=== PATIENT | female | born 1975 | race Caucasian/White ===

== ENCOUNTER 2016-11-08 11:44 | Emergency (ER) | payer MEDICAID ==
[~2016-11-08] VITALS: Ht 167.6 cm; Wt 102.3 kg
[~2016-11-08 11:44] MED LIST: BIRTH CONTROL; CEFTIN500 MG PO; CELEXA20 MG PO; CELEXA40 MG PO; DIABETA 2.5MG2.5 MG PO; DICLOXACILLIN500 MG PO; FORTAMET1000 MG PO; GLUCOPHAGE1000 MG PO; GLUCOPHAGE500 MG/TAB PO; IBUPROFEN; LAMICTAL 100MG100 MG PO; LEVOTHYROXINE PO; LORTAB 5/500 501 TAB PO; METFORMIN500 MG PO; MICRONASE2.5 MG PO; MOTRIN 600600 MG/TAB PO; NORCO 325 MG-51 TAB PO; NOVOLIN R100 U/ML IJ; PHENERGAN 25 TA25 MG PO; PIROXICAM PO; PRENATAL VITAMI1 TA5 PO; PRENATAL1 TA1 PO; PRILOSEC 20MG20 MG PO; PROZAC 20MG20 MG PO; SYNTHROID 0.0.025 MG; SYNTHROID0.1 MG/TAB PO; SYNTHROID0.137 MG PO; VICODIN 5/5001 UDTAB PO; VITAMIN D1000 IU PO; VITAMIN D31000 I1 PO; XANAX0.25 MG PO; ZOFRAN ODT4 MG PO
[2016-11-08 11:47] VITALS: TEMP 98.9
[2016-11-08] MEDS ORDERED: EFFEXOR-XR150 MG PO (11:51)
[2016-11-08] MEDS ORDERED: SYNTHROID0.075 MG/T PO (11:52)
[2016-11-08 12:45] LABS: ADJUSTED CALCIUM 9.1 mg/dL (8.4-10.2); ALBUMIN 4.4 gm/dL (3.5-5.0); BILIRUBIN,TOTAL 0.6 mg/dL (0.0-1.0); CALCIUM 9.4 mg/dL (8.4-10.2); CREATININE, serum 0.71 mg/dL (0.52-1.25); POTASSIUM 3.8 mmol/L (3.4-5.0); TOTAL PROTEIN 7.3 gm/dL (6.4-8.2)
[2016-11-08 12:48] LABS: BASO # 0.1 (0.0-0.2); BASO % 0.6 % (0.0-2.0); EOS # 0.2 (0.0-0.7); EOS % 2.8 % (0-4.0); GRAN # 5.8 (1.4-6.5); GRAN % 74.7 % (42.2-75.2); HEMATOCRIT 40.5 % (37.0-47.0); HEMOGLOBIN 13.5 g/dl (12.5-16.0); LYMPH # 1.2 (1.2-3.4); LYMPH % 15.4 % (20.0-51.0); MEAN CELL VOLUME 80 fl (80.0-100.0); MEAN CORPUSCULAR HEMOGLOBIN 27 pg (27.0-31.0); MEAN CORPUSCULAR HGB CONC 33 g/dl (33.0-37.0); MEAN PLATELET VOLUME 9.9 fl (7.4-10.4); MONO # 0.4 (0.1-0.6); MONO % 5.7 % (1.7-9.3); PLATELET COUNT 271 K/mm3 (130-400); RED BLOOD COUNT 5.09 M/mm3 (4.10-5.30); REDCELL DISTRIBUTION WIDTH-CV 13.2 % (11.5-14.5); WHITE BLOOD COUNT 7.8 K/mm3 (4.8-10.8)
[2016-11-08 15:00] LABS: PH 6 (5-8); URINE APPEARANCE Hazy; URINE BACTERIA None Seen /hpf; URINE BILIRUBIN Negative (NEGATIVE); URINE BLOOD 3+ (NEGATIVE); URINE COLOR Yellow; URINE GLUCOSE Negative (NEGATIVE); URINE KETONE Negative (NEGATIVE); URINE RBC 0-2 /hpf; URINE UROBILINOGEN Negative (NEGATIVE); URINE WBC 0-2 /hpf
[2016-11-08] MEDS ORDERED: NORCO 325 MG-7.1 TAB PO (15:25)
[2016-11-08] MEDS ORDERED: ZOFRAN ODT4 MG PO (15:26)
[2016-11-08 15:40] VITALS: BP 133/81; PULSE 74
== END 2016-11-08 15:44 | disposition home or self-care (01) ==
LOC: COL.ER 11:44
PROVIDERS: Emergency Medicine
DX: K76.0 Fatty (change of) liver, not elsewhere classified (principal); Z87.442 Personal history of urinary calculi; R10.31 Right lower quadrant pain; R10.11 Right upper quadrant pain
CPT/HCPCS: J1170; J2405; J7030; Q9967

== ENCOUNTER 2016-11-19 16:00 | Outpatient (RCR) | payer MEDICAID ==
[2016-11-08 16:38] VITALS: BP 116/79; PULSE 75; TEMP 98.2
[2016-11-12 11:53] VITALS: BP 119/73; PULSE 86; TEMP 98.6
[2016-11-15 16:51] VITALS: BP 123/82; PULSE 81; TEMP 98.1
[~2016-11-19 16:00] MED LIST changes: +EFFEXOR-XR150 MG PO; +NORCO 325 MG-7.1 TAB PO; +SYNTHROID0.075 MG/T PO
[2016-11-20 16:28] VITALS: BP 107/77; PULSE 77; TEMP 98.5
== END 2017-02-06 | disposition home or self-care (01) ==
LOC: EUO
DX: K76.0 Fatty (change of) liver, not elsewhere classified (principal); F17.200 Nicotine dependence, unspecified, uncomplicated
CPT/HCPCS: J2916

== ENCOUNTER → 2017-01-09 | Outpatient (CLI) | payer MEDICAID | LOC: COL.RAD 07:08 | DX: R10.13 Epigastric pain (principal); R16.0 Hepatomegaly, not elsewhere classified; K76.0 Fatty (change of) liver, not elsewhere classified; N28.1 Cyst of kidney, acquired ==

== ENCOUNTER → 2017-05-15 | Outpatient (CLI) | payer MEDICAID ==
[~2017-05-15] VITALS: Ht 168.9 cm; Wt 107.5 kg
[2017-05-15 09:09] VITALS: BP 110/72; PULSE 80
== END ==
LOC: LIGHT 05-14 13:46
DX: F33.9 Major depressive disorder, recurrent, unspecified (principal); R73.01 Impaired fasting glucose; E03.9 Hypothyroidism, unspecified; E66.9 Obesity, unspecified; Z68.37 Body mass index [BMI] 37.0-37.9, adult; Z71.3 Dietary counseling and surveillance

== ENCOUNTER 2017-06-06 19:47 | Emergency (ER) | payer MEDICAID ==
[~2017-06-06] VITALS: Ht 167.6 cm; Wt 107.8 kg
[2017-06-06 20:04] VITALS: BP 136/93; TEMP 98.4
[2017-06-06] MEDS ORDERED: TYLENOL W/COD1 UDTAB PO (20:55)
[2017-06-06] MEDS ORDERED: ULTRAM 50MG TAB50 MG PO (20:55)
[2017-06-06] MEDS ORDERED: MOTRIN 800800 MG/TAB PO (20:56)
[2017-06-06] MEDS ORDERED: NAPROSYN 2250 MG/TAB PO (20:56)
[2017-06-06 21:23] LABS: BASO # 0.1 (0.0-0.2); BASO % 0.9 % (0.0-2.0); EOS # 0.6 (0.0-0.7); EOS % 6.8 % (0-4.0); GRAN % 67.8 % (42.2-75.2); HEMATOCRIT 46.6 % (37.0-47.0); LYMPH # 1.6 (1.2-3.4); LYMPH % 18.5 % (20.0-51.0); MEAN CELL VOLUME 82 fl (80.0-100.0); MEAN CORPUSCULAR HEMOGLOBIN 28 pg (27.0-31.0); MEAN CORPUSCULAR HGB CONC 34 g/dl (33.0-37.0); MEAN PLATELET VOLUME 10.2 fl (7.4-10.4); MONO # 0.5 (0.1-0.6); MONO % 5.4 % (1.7-9.3); PLATELET COUNT 265 K/mm3 (130-400); REDCELL DISTRIBUTION WIDTH-CV 12.7 % (11.5-14.5); WHITE BLOOD COUNT 8.8 K/mm3 (4.8-10.8)
[2017-06-06 21:26] LABS: PH 6 (5-8); SQUAMOUS EPITHELIAL 0-2 /hpf; URINE APPEARANCE Clear; URINE BACTERIA Rare /hpf; URINE BILIRUBIN Negative (NEGATIVE); URINE BLOOD 1+ (NEGATIVE); URINE COLOR Yellow; URINE GLUCOSE 1+ (NEGATIVE); URINE KETONE Negative (NEGATIVE); URINE RBC 0-2 /hpf; URINE UROBILINOGEN Negative (NEGATIVE); URINE WBC 0-2 /hpf
[2017-06-06 21:33] LABS: ADJUSTED CALCIUM 9.5 mg/dL (8.4-10.2); ALBUMIN 4.5 gm/dL (3.5-5.0); BILIRUBIN,TOTAL 0.4 mg/dL (0.0-1.0); CALCIUM 9.9 mg/dL (8.4-10.2); CREATININE, serum 0.58 mg/dL (0.52-1.25); POTASSIUM 3.9 mmol/L (3.4-5.0); TOTAL PROTEIN 7.4 gm/dL (6.4-8.2)
[2017-06-06] MEDS ORDERED: PRIL40 PO (22:08)
[2017-06-06] MEDS ORDERED: BENTYL 20MG20 MG/TAB PO (22:08)
[2017-06-06 22:30] VITALS: PULSE 79
== END 2017-06-06 22:32 | disposition home or self-care (01) ==
LOC: COL.ER 19:47
PROVIDERS: Emergency Medicine
DX: R10.11 Right upper quadrant pain (principal); R19.7 Diarrhea, unspecified; G89.29 Other chronic pain; E03.9 Hypothyroidism, unspecified; F41.9 Anxiety disorder, unspecified
CPT/HCPCS: J2270; J2405; J7030

== ENCOUNTER → 2017-10-10 | Outpatient (CLI) | payer MEDICAID ==
[~2017-10-10] VITALS: Ht 167.6 cm; Wt 108.6 kg
[~2017-10-10] MED LIST changes: +BENTYL 20MG20 MG/TAB PO; +MOTRIN 800800 MG/TAB PO; +NAPROSYN 2250 MG/TAB PO; +PRIL40 PO; +TYLENOL W/COD1 UDTAB PO; +ULTRAM 50MG TAB50 MG PO
[2017-10-10 11:15] VITALS: BP 130/80; PULSE 82
== END ==
LOC: LIGHT
DX: F33.9 Major depressive disorder, recurrent, unspecified (principal); R73.01 Impaired fasting glucose; E03.9 Hypothyroidism, unspecified; E66.9 Obesity, unspecified; Z68.38 Body mass index [BMI] 38.0-38.9, adult; Z71.3 Dietary counseling and surveillance
CPT/HCPCS: G0463

== ENCOUNTER → 2017-10-21 | Outpatient (CLI) | payer MEDICAID | LOC: LIGHT 14:07 | DX: Z01.89 Encounter for other specified special examinations (principal) ==

== ENCOUNTER → 2017-11-07 | Outpatient (CLI) | payer MEDICAID ==
[~2017-11-07] VITALS: Ht 167.6 cm; Wt 110.0 kg
[~2017-11-07] MED LIST changes: +PHENTERMINE15 MG PO
[2017-11-07 11:55] VITALS: BP 120/84; PULSE 84
== END ==
LOC: LIGHT 09:46
DX: F33.9 Major depressive disorder, recurrent, unspecified (principal); R73.01 Impaired fasting glucose; E03.9 Hypothyroidism, unspecified; E66.9 Obesity, unspecified; Z68.39 Body mass index [BMI] 39.0-39.9, adult; Z71.3 Dietary counseling and surveillance
CPT/HCPCS: G0463

== ENCOUNTER → 2017-12-02 | Outpatient (CLI) | payer MEDICAID | LOC: LIGHT 14:57 | DX: Z01.818 Encounter for other preprocedural examination (principal) ==

== ENCOUNTER → 2017-12-05 | Outpatient (CLI) | payer MEDICAID ==
[~2017-12-05] VITALS: Ht 167.6 cm; Wt 108.6 kg
[~2017-12-05] MED LIST changes: +DOXYCYCLINE 10100 MG PO; +FLAGYL500 MG PO
[2017-12-05 13:48] VITALS: BP 118/84; PULSE 84
== END ==
LOC: LIGHT 13:13
DX: F33.9 Major depressive disorder, recurrent, unspecified (principal); R73.01 Impaired fasting glucose; E03.9 Hypothyroidism, unspecified; E66.9 Obesity, unspecified; Z68.38 Body mass index [BMI] 38.0-38.9, adult; Z71.3 Dietary counseling and surveillance
CPT/HCPCS: G0463

== ENCOUNTER 2017-12-07 12:36 | Emergency (ER) | payer MEDICAID ==
[~2017-12-07] VITALS: Ht 167.6 cm; Wt 108.6 kg
[~2017-12-07 12:36] MED LIST changes: -DOXYCYCLINE 10100 MG PO; -FLAGYL500 MG PO
[2017-12-07 12:38] VITALS: TEMP 98
[2017-12-07 12:59] LABS: COLLECTION METHOD CLEAN CATCH
[2017-12-07 13:08] LABS: PH 6 (5-8); SQUAMOUS EPITHELIAL 0-2 /hpf; URINE APPEARANCE Clear; URINE BACTERIA None Seen /hpf; URINE BILIRUBIN Negative (NEGATIVE); URINE BLOOD 2+ (NEGATIVE); URINE COLOR Yellow; URINE GLUCOSE 3+ (NEGATIVE); URINE KETONE Negative (NEGATIVE); URINE LEUKOCYTE ESTERASE Negative (NEGATIVE); URINE NITRATE Negative (NEGATIVE); URINE PROTEIN(semi-quant) Negative (NEGATIVE); URINE RBC None Seen /hpf; URINE UROBILINOGEN Negative (NEGATIVE)
[2017-12-07 13:31] LABS: BASO # 0.1 (0.0-0.2); EOS # 0.4 (0.0-0.7); EOS % 4.8 % (0-4.0); GRAN # 4.8 (1.4-6.5); GRAN % 66.1 % (42.2-75.2); HEMATOCRIT 42.1 % (37.0-47.0); HEMOGLOBIN 14.5 g/dl (12.5-16.0); LYMPH # 1.6 (1.2-3.4); LYMPH % 21.7 % (20.0-51.0); MEAN CELL VOLUME 82 fl (80.0-100.0); MEAN CORPUSCULAR HEMOGLOBIN 28 pg (27.0-31.0); MEAN CORPUSCULAR HGB CONC 34 g/dl (33.0-37.0); MEAN PLATELET VOLUME 10.1 fl (7.4-10.4); MONO # 0.4 (0.1-0.6); MONO % 5.7 % (1.7-9.3); PLATELET COUNT 234 K/mm3 (130-400); RED BLOOD COUNT 5.14 M/mm3 (4.10-5.30); REDCELL DISTRIBUTION WIDTH-CV 12.7 % (11.5-14.5)
[2017-12-07 13:37] LABS: ALBUMIN 4.2 gm/dL (3.5-5.0); BILIRUBIN,TOTAL 0.3 mg/dL (0.0-1.0); CALCIUM 8.7 mg/dL (8.4-10.2); CREATININE, serum 0.57 mg/dL (0.52-1.25); POTASSIUM 3.8 mmol/L (3.4-5.0); TOTAL PROTEIN 6.8 gm/dL (6.4-8.2)
[2017-12-07] MEDS ORDERED: FLAGYL500 MG PO (15:23)
[2017-12-07] MEDS ORDERED: DOXYCYCLINE 10100 MG PO (15:23)
[2017-12-07] MEDS ORDERED: NORCO 325 MG-51 TAB PO (15:47)
[2017-12-07 15:49] VITALS: BP 132/86; PULSE 88
== END 2017-12-07 15:49 | disposition home or self-care (01) ==
LOC: COL.ER 12:36
PROVIDERS: Emergency Medicine
DX: R10.30 Lower abdominal pain, unspecified (principal); R10.2 Pelvic and perineal pain; E03.9 Hypothyroidism, unspecified; F17.210 Nicotine dependence, cigarettes, uncomplicated; Z87.442 Personal history of urinary calculi; Z98.890 Other specified postprocedural states
CPT/HCPCS: J0696

== ENCOUNTER → 2018-01-02 | Outpatient (CLI) | payer MEDICAID ==
[~2018-01-02] VITALS: Ht 167.6 cm; Wt 108.9 kg
[~2018-01-02] MED LIST changes: +ADIPEX-P37.5 MG PO; +DOXYCYCLINE 10100 MG PO; +FLAGYL500 MG PO; -PHENTERMINE15 MG PO; -SYNTHROID0.075 MG/T PO; +SYNTHROID0.175 MG PO
[2018-01-02 14:02] VITALS: BP 150/100; PULSE 72
== END ==
LOC: LIGHT 13:04
DX: F33.9 Major depressive disorder, recurrent, unspecified (principal); R73.01 Impaired fasting glucose; E03.9 Hypothyroidism, unspecified; E66.9 Obesity, unspecified; Z68.38 Body mass index [BMI] 38.0-38.9, adult; Z71.3 Dietary counseling and surveillance
CPT/HCPCS: G0463

== ENCOUNTER → 2018-01-14 | Outpatient (CLI) | payer MEDICAID | LOC: COL.PUL 12:54 | DX: R06.02 Shortness of breath (principal) ==

== ENCOUNTER 2018-02-06 21:15 | Emergency (ER) | payer MEDICAID ==
[~2018-02-06] VITALS: Ht 167.6 cm; Wt 106.8 kg
[2018-02-06 21:17] VITALS: TEMP 97.6
[2018-02-06 21:51] LABS: BASO # 0.1 (0.0-0.2); BASO % 0.7 % (0.0-2.0); EOS # 0.5 (0.0-0.7); EOS % 3.9 % (0-4.0); GRAN # 8.4 (1.4-6.5); GRAN % 70.1 % (42.2-75.2); HEMATOCRIT 42.8 % (37.0-47.0); LYMPH # 2.3 (1.2-3.4); LYMPH % 19.1 % (20.0-51.0); MEAN CELL VOLUME 81 fl (80.0-100.0); MEAN CORPUSCULAR HEMOGLOBIN 29 pg (27.0-31.0); MEAN CORPUSCULAR HGB CONC 35 g/dl (33.0-37.0); MEAN PLATELET VOLUME 9.9 fl (7.4-10.4); MONO # 0.6 (0.1-0.6); MONO % 5.2 % (1.7-9.3); PLATELET COUNT 230 K/mm3 (130-400); RED BLOOD COUNT 5.27 M/mm3 (4.10-5.30); REDCELL DISTRIBUTION WIDTH-CV 12.4 % (11.5-14.5)
[2018-02-06 21:59] LABS: PROTHROMBIN TIME 10.9 SECONDS (9.7-12.8)
[2018-02-06 22:00] LABS: ALANINE AMINOTRANSFERASE 46 U/L (9-52); ALBUMIN 4.1 gm/dL (3.5-5.0); ALKALINE PHOSPHATASE 98 U/L (50-136); ANION GAP 15 mmol/L (7-16); AST,SGOT 28 U/L (15-37); BILIRUBIN,TOTAL 0.4 mg/dL (0.0-1.0); BLOOD UREA NITROGEN 10 mg/dL (7-17); CALCIUM 9.3 mg/dL (8.4-10.2); CARBON DIOXIDE 21 mmol/L (22-30); CHLORIDE 103 mmol/L (98-107); CREATININE, serum 0.58 mg/dL (0.52-1.25); GLUCOSE 165 mg/dL (74-106); LIPASE 55 U/L (23-300); POTASSIUM 3.1 mmol/L (3.4-5.0); SODIUM 140 mmol/L (137-145); TOTAL PROTEIN 7.2 gm/dL (6.4-8.2)
[2018-02-06 22:15] LABS: TROPONIN-I < 0.012 ng/mL (0.000-0.034)
[2018-02-07 00:27] VITALS: BP 107/68; PULSE 72
== END 2018-02-07 00:48 | disposition home or self-care (01) ==
LOC: COL.ER 21:15
PROVIDERS: Emergency Medicine
DX: R42 Dizziness and giddiness (principal); E11.9 Type 2 diabetes mellitus without complications; E03.9 Hypothyroidism, unspecified
CPT/HCPCS: J2060; J2550; J7030

== ENCOUNTER → 2018-02-06 | Outpatient (CLI) | payer MEDICAID ==
[~2018-02-06] VITALS: Ht 167.6 cm; Wt 106.6 kg
[2018-02-06 13:10] VITALS: BP 114/70; PULSE 72
== END ==
LOC: LIGHT 13:02
DX: F33.9 Major depressive disorder, recurrent, unspecified (principal); R73.01 Impaired fasting glucose; E03.9 Hypothyroidism, unspecified; E66.9 Obesity, unspecified; Z68.37 Body mass index [BMI] 37.0-37.9, adult; Z71.3 Dietary counseling and surveillance
CPT/HCPCS: G0463

== ENCOUNTER → 2018-02-17 | Outpatient (CLI) | payer MEDICAID, OTHER ==
[~2018-02-17] VITALS: Ht 167.6 cm; Wt 106.4 kg
[2018-02-17 15:35] VITALS: BP 112/60; PULSE 64
== END ==
LOC: LIGHT 15:12
DX: E66.01 Morbid (severe) obesity due to excess calories (principal); Z68.37 Body mass index [BMI] 37.0-37.9, adult; Z71.3 Dietary counseling and surveillance
CPT/HCPCS: G0463

== ENCOUNTER 2018-03-03 16:48 | Inpatient (IN) | payer MEDICAID ==
[~2018-03-03] VITALS: Ht 167.6 cm; Wt 105.9 kg
[~2018-03-03 16:48] MED LIST changes: -SYNTHROID0.175 MG PO
[2018-03-19] VITALS (12 sets, daily range): BP systolic 132–149; BP diastolic 74–95; PULSE 67–108; TEMP 98.2–98.4
[2018-03-20 04:40] VITALS: BP 132/82; PULSE 89; TEMP 98.5
[2018-03-20 11:22] VITALS: BP 146/89; PULSE 87; TEMP 97.9
[2018-03-20 15:14] VITALS: BP 138/86; PULSE 83; TEMP 98.6
== END 2018-03-20 18:51 | disposition home or self-care (01) | DRG 621 ==
LOC: SURG 03-19 09:27 → INPTSU 03-19 09:27 → SURG 03-19 11:30
PROVIDERS: Surgery
PROC: 0DB64Z3 Excision of Stomach, Percutaneous Endoscopic Approach, Vertical (ICD-10-PCS; principal; 2018-03-19 11:30)
DX: E66.01 Morbid (severe) obesity due to excess calories (principal); Z68.37 Body mass index [BMI] 37.0-37.9, adult; E28.2 Polycystic ovarian syndrome; E03.9 Hypothyroidism, unspecified; F41.8 Other specified anxiety disorders
CPT/HCPCS: J0690; J1100; J1170; J1885; J2405; J2550; J2704; J3010; J7030

== ENCOUNTER → 2018-03-10 | Outpatient (CLI) | payer MEDICAID, OTHER ==
[~2018-03-10] MED LIST changes: +SYNTHROID0.175 MG PO
== END ==
LOC: LIGHT 11:01
DX: E66.9 Obesity, unspecified (principal)

== ENCOUNTER → 2018-03-31 | Outpatient (CLI) | payer MEDICAID, OTHER ==
[~2018-03-31] VITALS: Ht 167.6 cm; Wt 98.7 kg
[~2018-03-31] MED LIST changes: -SYNTHROID0.175 MG PO
[2018-03-31 15:37] VITALS: BP 102/72; PULSE 70
== END ==
LOC: LIGHT
DX: R73.01 Impaired fasting glucose (principal); E66.9 Obesity, unspecified; Z68.35 Body mass index [BMI] 35.0-35.9, adult; Z71.3 Dietary counseling and surveillance

== ENCOUNTER → 2018-04-28 | Outpatient (CLI) | payer MEDICAID, OTHER ==
[~2018-04-28] VITALS: Ht 167.6 cm; Wt 93.4 kg
[~2018-04-28] MED LIST changes: +CALCIUM CITRAT950 MG PO; +FLINTSTONES COM1 CT1 PO; +HARD NAILS 2.51 CAP PO; +MASON NATURAL2000 IU PO
[2018-04-28 14:38] VITALS: BP 106/76; PULSE 88
== END ==
LOC: LIGHT 14:11
DX: R73.01 Impaired fasting glucose (principal); E03.9 Hypothyroidism, unspecified; E66.9 Obesity, unspecified; Z68.33 Body mass index [BMI] 33.0-33.9, adult; Z98.84 Bariatric surgery status; Z71.3 Dietary counseling and surveillance

== ENCOUNTER 2018-10-09 09:50 | Emergency (ER) | payer MEDICAID ==
[~2018-10-09] VITALS: Ht 167.6 cm; Wt 83.2 kg
[2018-10-09 09:55] VITALS: BP 119/80; TEMP 98
[2018-10-09] MEDS ORDERED: SYNTHROID 0.10.15 MG PO (10:13)
[2018-10-09] MEDS ORDERED: AMOXICILLIN 50500 MG PO (10:16)
[2018-10-09] MEDS ORDERED: NORCO 325 MG-51 TAB PO (10:17)
[2018-10-09 10:32] VITALS: PULSE 80
== END 2018-10-09 10:32 | disposition home or self-care (01) ==
LOC: COL.ER 09:50
DX: K03.81 Cracked tooth (principal); K08.89 Other specified disorders of teeth and supporting structures; Z88.5 Allergy status to narcotic agent

== ENCOUNTER → 2019-01-05 | Outpatient (CLI) | payer MEDICAID, OTHER ==
[~2019-01-05] VITALS: Ht 167.6 cm; Wt 82.6 kg
[~2019-01-05] MED LIST changes: +AMOXICILLIN 50500 MG PO; +FIBER GUMMIES2.5 GM PO; -MASON NATURAL2000 IU PO; +SYNTHROID 0.10.15 MG PO; +VITAMIN D31000 IU PO
[2019-01-05 13:18] VITALS: BP 118/76; PULSE 74
== END ==
LOC: LIGHT
DX: E66.01 Morbid (severe) obesity due to excess calories (principal); Z68.29 Body mass index [BMI] 29.0-29.9, adult; Z71.3 Dietary counseling and surveillance
CPT/HCPCS: G0463

== ENCOUNTER → 2019-04-13 | Outpatient (CLI) | payer MEDICAID ==
[~2019-04-13] VITALS: Ht 167.6 cm; Wt 80.3 kg
[2019-04-13 13:50] VITALS: BP 100/70; PULSE 78
== END ==
LOC: LIGHT 13:19
DX: R73.01 Impaired fasting glucose (principal); E03.9 Hypothyroidism, unspecified; Z98.84 Bariatric surgery status; E66.3 Overweight; Z68.28 Body mass index [BMI] 28.0-28.9, adult; Z71.3 Dietary counseling and surveillance
CPT/HCPCS: G0463

== ENCOUNTER → 2019-04-16 | Outpatient (CLI) | payer MEDICAID | LOC: COL.RAD 07:10 | DX: R11.2 Nausea with vomiting, unspecified (principal); R10.9 Unspecified abdominal pain; Z98.84 Bariatric surgery status ==

== ENCOUNTER → 2019-04-27 | Outpatient (CLI) | payer MEDICAID ==
[~2019-04-27] VITALS: Ht 167.6 cm; Wt 80.3 kg
[2019-04-27 12:47] VITALS: BP 104/60; PULSE 84
--- NOTE | 2019-04-27 13:30 | NUR ---
Client left the clinic stating, "I have to go get my mom". Client had been seen by the nurse but had not seen the physician. No fee for today's visit. Called and left a message that her GB ultrasound was normal and if her pain continues we could obtain a hepatobiliary scan per Dr. Antony. Encouraged client to journal to determine if a specific food type or volume was causing her discomfort. To call program nurse for any issues.
== END ==
LOC: LIGHT 07:21
DX: Z98.84 Bariatric surgery status (principal); R73.01 Impaired fasting glucose; E03.9 Hypothyroidism, unspecified; E66.9 Obesity, unspecified; Z68.28 Body mass index [BMI] 28.0-28.9, adult; Z71.3 Dietary counseling and surveillance

== ENCOUNTER 2019-07-28 17:22 | Emergency (ER) | payer MEDICAID ==
[~2019-07-28] VITALS: Ht 167.6 cm; Wt 79.5 kg
[2019-07-28 17:25] VITALS: TEMP 99
[2019-07-28 17:37] LABS: COLLECTION METHOD CLEAN CATCH
[2019-07-28 17:51] LABS: PH 6 (5-8); SQUAMOUS EPITHELIAL 0-2 /hpf; URINE APPEARANCE Clear; URINE BACTERIA None Seen /hpf; URINE BILIRUBIN Negative (NEGATIVE); URINE BLOOD Negative (NEGATIVE); URINE COLOR Yellow; URINE GLUCOSE Negative (NEGATIVE); URINE KETONE Negative (NEGATIVE); URINE LEUKOCYTE ESTERASE Negative (NEGATIVE); URINE NITRATE Negative (NEGATIVE); URINE PROTEIN(semi-quant) Negative (NEGATIVE); URINE RBC None Seen /hpf; URINE UROBILINOGEN >=4.0 mg/dL (NEGATIVE)
[2019-07-28 17:53] LABS: BASO # 0.1 (0.0-0.2); EOS # 0.1 (0.0-0.7); EOS % 1.2 % (0-4.0); GRAN # 4.5 (1.4-6.5); HEMATOCRIT 41.8 % (37.0-47.0); HEMOGLOBIN 14.4 g/dl (12.5-16.0); LYMPH % 15.7 % (20.0-51.0); MEAN CELL VOLUME 83 fl (80.0-100.0); MEAN CORPUSCULAR HEMOGLOBIN 29 pg (27.0-31.0); MEAN CORPUSCULAR HGB CONC 34 g/dl (33.0-37.0); MEAN PLATELET VOLUME 9.7 fl (7.4-10.4); MONO # 0.4 (0.1-0.6); MONO % 6.8 % (1.7-9.3); PLATELET COUNT 191 K/mm3 (130-400); RED BLOOD COUNT 5.05 M/mm3 (4.10-5.30); REDCELL DISTRIBUTION WIDTH-CV 12.6 % (11.5-14.5)
[2019-07-28 18:10] LABS: ALANINE AMINOTRANSFERASE 15 U/L (9-52); ALBUMIN 4.5 gm/dL (3.5-5.0); ALKALINE PHOSPHATASE 48 U/L (50-136); ANION GAP 11 mmol/L (7-16); AST,SGOT 19 U/L (15-37); BILIRUBIN,TOTAL 0.4 mg/dL (0.0-1.0); BLOOD UREA NITROGEN 7 mg/dL (7-17); C-REACTIVE PROTEIN 6.2 mg/dL (0.0-0.9); CALCIUM 9.1 mg/dL (8.4-10.2); CARBON DIOXIDE 24 mmol/L (22-30); CHLORIDE 101 mmol/L (98-107); CREATININE, serum 0.58 (0.52-1.25); GLUCOSE 184 mg/dL (74-106); LIPASE 42 U/L (23-300); POTASSIUM 3.6 mmol/L (3.4-5.0); SODIUM 136 mmol/L (137-145); TOTAL PROTEIN 7.5 gm/dL (6.4-8.2)
[2019-07-28 18:29] LABS: TROPONIN-I < 0.012 ng/mL (0.000-0.035)
[2019-07-28] MEDS ORDERED: DOXYCYCLINE 10100 MG PO (20:03)
[2019-07-28] MEDS ORDERED: ZOFRAN ODT4 MG PO (20:03)
[2019-07-28 20:05] VITALS: BP 121/77; PULSE 84
== END 2019-07-28 20:15 | disposition home or self-care (01) ==
LOC: COL.ER 17:22
PROVIDERS: Nurse Practitioner
DX: J18.1 Lobar pneumonia, unspecified organism (principal); F32.9 Major depressive disorder, single episode, unspecified; E03.9 Hypothyroidism, unspecified; Z98.51 Tubal ligation status; Z88.5 Allergy status to narcotic agent; Z87.891 Personal history of nicotine dependence
CPT/HCPCS: A4216; J0696; J1170; J1885; J2405; J2550; J7030; Q9967

== ENCOUNTER 2019-10-08 17:47 | Emergency (ER) | payer MEDICAID ==
[~2019-10-08] VITALS: Ht 167.6 cm; Wt 79.5 kg
[2019-10-08 18:06] VITALS: TEMP 98.1
[2019-10-08 19:07] LABS: BASO # 0.1 (0.0-0.2); BASO % 0.9 % (0.0-2.0); EOS # 0.2 (0.0-0.7); EOS % 2.4 % (0-4.0); GRAN # 6.7 (1.4-6.5); GRAN % 71.7 % (42.2-75.2); HEMATOCRIT 43.8 % (37.0-47.0); HEMOGLOBIN 14.8 g/dl (12.5-16.0); LYMPH # 1.8 (1.2-3.4); LYMPH % 19.3 % (20.0-51.0); MEAN CELL VOLUME 86 fl (80.0-100.0); MEAN CORPUSCULAR HEMOGLOBIN 29 pg (27.0-31.0); MEAN CORPUSCULAR HGB CONC 34 g/dl (33.0-37.0); MEAN PLATELET VOLUME 10.2 fl (7.4-10.4); MONO # 0.5 (0.1-0.6); MONO % 5.2 % (1.7-9.3); PLATELET COUNT 245 K/mm3 (130-400); RED BLOOD COUNT 5.12 M/mm3 (4.10-5.30); REDCELL DISTRIBUTION WIDTH-CV 12.3 % (11.5-14.5)
[2019-10-08 19:31] LABS: ALANINE AMINOTRANSFERASE 13 U/L (9-52); ALBUMIN 4.7 gm/dL (3.5-5.0); ALKALINE PHOSPHATASE 54 U/L (50-136); ANION GAP 11 mmol/L (7-16); AST,SGOT 20 U/L (15-37); BILIRUBIN,TOTAL 0.4 mg/dL (0.0-1.0); BLOOD UREA NITROGEN 13 mg/dL (7-17); CALCIUM 9.2 mg/dL (8.4-10.2); CARBON DIOXIDE 26 mmol/L (22-30); CHLORIDE 104 mmol/L (98-107); GLUCOSE 118 mg/dL (74-106); POTASSIUM 3.9 mmol/L (3.4-5.0); SODIUM 141 mmol/L (137-145); TOTAL PROTEIN 7.4 gm/dL (6.4-8.2)
[2019-10-08 19:40] LABS: C-REACTIVE PROTEIN < 0.5 mg/dL (0.0-0.9); TROPONIN-I < 0.012 ng/mL (0.000-0.035)
[2019-10-08 20:01] VITALS: BP 117/79
[2019-10-08] MEDS ORDERED: ZOFRAN 4MG T4 MG/TAB PO (20:06)
[2019-10-08] MEDS ORDERED: ANTIVERT 25MG25 MG PO (20:06)
[2019-10-08 20:09] VITALS: PULSE 68
== END 2019-10-08 20:20 | disposition home or self-care (01) ==
LOC: COL.ER 17:47
PROVIDERS: Emergency Medicine
DX: R42 Dizziness and giddiness (principal); R53.81 Other malaise; F32.9 Major depressive disorder, single episode, unspecified; E03.9 Hypothyroidism, unspecified
CPT/HCPCS: J2405; J7030

== ENCOUNTER → 2019-10-29 | Outpatient (CLI) | payer MEDICAID ==
[~2019-10-29] VITALS: Ht 167.6 cm; Wt 81.2 kg
[~2019-10-29] MED LIST changes: +ANTIVERT 25MG25 MG PO; +ZOFRAN 4MG T4 MG/TAB PO
[2019-10-29 13:30] VITALS: BP 102/70; PULSE 84
== END ==
LOC: LIGHT 10-22 11:30
DX: Z68.28 Body mass index [BMI] 28.0-28.9, adult (principal); Z98.84 Bariatric surgery status; R73.01 Impaired fasting glucose
CPT/HCPCS: G0463

== ENCOUNTER → 2020-02-26 | Outpatient (CLI) | payer MEDICAID | LOC: COL.RAD 12:53 | DX: N80.9 Endometriosis, unspecified (principal); Q51.3 Bicornate uterus; N83.9 Noninflammatory disorder of ovary, fallopian tube and broad ligament, unspecified | CPT/HCPCS: A9585 ==

== ENCOUNTER 2020-08-07 16:44 | Emergency (ER) | payer MEDICAID ==
[~2020-08-07] VITALS: Ht 167.6 cm; Wt 81.8 kg
[2020-08-07 16:50] VITALS: BP 149/85; TEMP 97
[2020-08-07 18:32] VITALS: PULSE 66
== END 2020-08-07 18:32 | disposition home or self-care (01) ==
LOC: COL.ER 16:44
DX: R51.9 Headache, unspecified (principal); E03.9 Hypothyroidism, unspecified; F32.9 Major depressive disorder, single episode, unspecified; Z90.710 Acquired absence of both cervix and uterus; Z98.84 Bariatric surgery status; Z88.5 Allergy status to narcotic agent; Z79.890 Hormone replacement therapy
CPT/HCPCS: J1885; J2405

== ENCOUNTER 2020-10-02 17:26 | Emergency (ER) | payer MEDICAID ==
[~2020-10-02] VITALS: Ht 167.6 cm; Wt 81.8 kg
[2020-10-02 17:46] VITALS: BP 121/73; PULSE 85; TEMP 97.9
[2020-10-02 19:00] LABS: COLLECTION METHOD CLEAN CATCH
[2020-10-02 19:04] LABS: BASO # 0.1 (0.0-0.2); BASO % 0.8 % (0.0-2.0); EOS # 0.3 (0.0-0.7); EOS % 2.6 % (0-4.0); GRAN % 70.2 % (42.2-75.2); HEMATOCRIT 44.5 % (37.0-47.0); HEMOGLOBIN 14.5 g/dl (12.5-16.0); LYMPH # 1.9 (1.2-3.4); LYMPH % 18.9 % (20.0-51.0); MEAN CELL VOLUME 86 fl (80.0-100.0); MEAN CORPUSCULAR HEMOGLOBIN 28 pg (27.0-31.0); MEAN CORPUSCULAR HGB CONC 33 g/dl (33.0-37.0); MEAN PLATELET VOLUME 9.9 fl (7.4-10.4); MONO # 0.7 (0.1-0.6); MONO % 6.9 % (1.7-9.3); PLATELET COUNT 275 K/mm3 (130-400); REDCELL DISTRIBUTION WIDTH-CV 12.8 % (11.5-14.5)
[2020-10-02 19:07] LABS: PH 6 (5-8); SQUAMOUS EPITHELIAL 0-2 /hpf; URINE APPEARANCE Clear; URINE BACTERIA None Seen /hpf; URINE BILIRUBIN Negative (NEGATIVE); URINE BLOOD Negative (NEGATIVE); URINE COLOR Yellow; URINE GLUCOSE 3+ (NEGATIVE); URINE KETONE Trace (NEGATIVE); URINE LEUKOCYTE ESTERASE Negative (NEGATIVE); URINE NITRATE Negative (NEGATIVE); URINE PROTEIN(semi-quant) Negative (NEGATIVE); URINE RBC 0-2 /hpf
[2020-10-02 19:13] LABS: ALANINE AMINOTRANSFERASE 18 U/L (4-34); ALBUMIN 4.6 gm/dL (3.5-5.0); ALKALINE PHOSPHATASE 55 U/L (50-136); ANION GAP 9 mmol/L (7-16); AST,SGOT 24 U/L (15-37); BILIRUBIN,TOTAL 0.4 mg/dL (0.0-1.0); BLOOD UREA NITROGEN 10 mg/dL (7-17); C-REACTIVE PROTEIN < 0.5 mg/dL (0.0-0.9); CALCIUM 9.3 mg/dL (8.4-10.2); CARBON DIOXIDE 28 mmol/L (22-30); CHLORIDE 100 mmol/L (98-107); CREATININE, serum 0.66 (0.52-1.25); GLUCOSE 135 mg/dL (74-106); LIPASE 57 U/L (23-300); POTASSIUM 4.1 mmol/L (3.4-5.0); SODIUM 137 mmol/L (137-145); TOTAL PROTEIN 7.4 gm/dL (6.4-8.2)
== END 2020-10-02 21:42 | disposition home or self-care (01) ==
LOC: COL.ER 17:26
PROVIDERS: Physician Assistant
DX: R10.30 Lower abdominal pain, unspecified (principal); R11.2 Nausea with vomiting, unspecified; E03.9 Hypothyroidism, unspecified; Z98.84 Bariatric surgery status; Z88.6 Allergy status to analgesic agent; Z79.890 Hormone replacement therapy
CPT/HCPCS: J1885; J2405; J7030; Q9967

== ENCOUNTER 2021-02-17 13:34 | Emergency (ER) | payer MEDICAID ==
[~2021-02-17] VITALS: Ht 167.6 cm; Wt 81.8 kg
[2021-02-17 15:15] LABS: BASO # 0.1 (0.0-0.2); BASO % 0.8 % (0.0-2.0); EOS # 0.2 (0.0-0.7); EOS % 2.8 % (0-4.0); GRAN % 66.1 % (42.2-75.2); HEMATOCRIT 41.7 % (37.0-47.0); LYMPH # 1.8 (1.2-3.4); LYMPH % 23.1 % (20.0-51.0); MEAN CELL VOLUME 83 fl (80.0-100.0); MEAN CORPUSCULAR HEMOGLOBIN 28 pg (27.0-31.0); MEAN CORPUSCULAR HGB CONC 34 g/dl (33.0-37.0); MONO # 0.5 (0.1-0.6); MONO % 6.7 % (1.7-9.3); PLATELET COUNT 257 K/mm3 (130-400); RED BLOOD COUNT 5.03 M/mm3 (4.10-5.30); REDCELL DISTRIBUTION WIDTH-CV 12.8 % (11.5-14.5)
[2021-02-17] MEDS ORDERED: CHERATUSSIN AC120 ML PO (15:47)
[2021-02-17 16:08] VITALS: BP 124/64; PULSE 75; TEMP 98.9
== END 2021-02-17 16:09 | disposition home or self-care (01) ==
LOC: COL.ER 13:34
PROVIDERS: Family Medicine
DX: B34.9 Viral infection, unspecified (principal); J39.9 Disease of upper respiratory tract, unspecified; F17.290 Nicotine dependence, other tobacco product, uncomplicated; Z20.822 Contact with and (suspected) exposure to COVID-19

== ENCOUNTER 2021-09-21 17:33 | Emergency (ER) | payer MEDICAID ==
[~2021-09-21] VITALS: Ht 167.6 cm; Wt 84.1 kg
[~2021-09-21 17:33] MED LIST changes: +CHERATUSSIN AC120 ML PO
[2021-09-21 17:56] VITALS: TEMP 98.1
[2021-09-21 19:01] LABS: COLLECTION METHOD CLEAN CATCH
[2021-09-21 19:10] LABS: PH 5 (5-8); SQUAMOUS EPITHELIAL 0-2 /hpf (0-10); URINE APPEARANCE Clear (CLEAR/HAZY); URINE BACTERIA Rare /hpf (NONE SEEN); URINE BILIRUBIN Negative (NEGATIVE); URINE BLOOD Negative (NEGATIVE); URINE COLOR Yellow (YELLOW); URINE GLUCOSE Negative (NEGATIVE); URINE KETONE Trace (NEGATIVE); URINE LEUKOCYTE ESTERASE Negative (NEGATIVE); URINE NITRATE Negative (NEGATIVE); URINE PROTEIN(semi-quant) Negative (NEGATIVE); URINE RBC 0-2 /hpf (0-2); URINE UROBILINOGEN Negative (NEGATIVE)
[2021-09-21 19:56] LABS: BASO # 0.1 K/mm3 (0.0-0.2); BASO % 0.7 % (0.0-2.0); EOS # 0.4 K/mm3 (0.0-0.7); GRAN % 68.3 % (42.2-75.2); HEMATOCRIT 44.2 % (37.0-47.0); HEMOGLOBIN 14.6 g/dl (12.5-16.0); LYMPH # 2.6 K/mm3 (1.2-3.4); LYMPH % 22.1 % (20.0-51.0); MEAN CELL VOLUME 85 fl (80.0-100.0); MEAN CORPUSCULAR HEMOGLOBIN 28 pg (27-31); MEAN CORPUSCULAR HGB CONC 33 g/dl (33.0-37.0); MEAN PLATELET VOLUME 9.8 fl (7.4-10.4); MONO # 0.7 K/mm3 (0.1-0.6); MONO % 5.6 % (1.7-9.3); PLATELET COUNT 268 K/mm3 (130-400); RED BLOOD COUNT 5.19 M/mm3 (4.10-5.30); REDCELL DISTRIBUTION WIDTH-CV 12.7 % (11.5-14.5)
[2021-09-21 20:15] LABS: ALBUMIN 4.4 gm/dL (3.5-5.0); BILIRUBIN,TOTAL 0.3 mg/dL (0.2-1.2); C-REACTIVE PROTEIN 0.17 mg/dL (0.00-0.50); CALCIUM 8.9 mg/dL (8.4-10.2); CREATININE, serum 0.74 mg/dL (0.57-1.11); POTASSIUM 3.9 mmol/L (3.5-4.5); TOTAL PROTEIN 7.3 gm/dL (6.2-8.1)
[2021-09-21] MEDS ORDERED: BENTYL 20MG20 MG/TAB PO (22:08)
[2021-09-21] MEDS ORDERED: ZOFRAN ODT4 MG PO (22:08)
[2021-09-21 22:35] VITALS: BP 129/79; PULSE 68
== END 2021-09-21 22:35 | disposition home or self-care (01) ==
LOC: COL.ER 17:33
PROVIDERS: Nurse Practitioner
DX: R10.31 Right lower quadrant pain (principal); R10.32 Left lower quadrant pain; R11.0 Nausea; E03.9 Hypothyroidism, unspecified; F32.A Depression, unspecified; K58.9 Irritable bowel syndrome, unspecified; Z98.84 Bariatric surgery status; Z88.5 Allergy status to narcotic agent; Z79.890 Hormone replacement therapy; Z79.899 Other long term (current) drug therapy
CPT/HCPCS: J1170; J2405; J7030; Q9967

== ENCOUNTER 2021-10-11 08:25 | Day surgery (SDC) | payer MEDICAID ==
[~2021-10-11] VITALS: Ht 167.6 cm; Wt 83.7 kg
--- NOTE | 2021-10-11 08:40 | NUR ---
Patient and her daughter arrived to the endo suite. The patient states it is AOK for her daughter to be present for questions and history review. The patient is alert and oriented x3. Medications and HX reviewed. Patient states having a prior hysterectomy. Vitals obtained. Physical assessment completed. Patient states having diet controlled type II diabetes. She states she does not take her blood sugar at home, but does experience low blood sugar. RN to obtain blood sugar prior to procedure. Patient changed into a clean gown. Has non-slip socks on and the call chung is at bedside. Daughter requsted a Sprite to drink.
[2021-10-11] MEDS ORDERED: LEVOXYL0.112 MG PO (08:48)
[2021-10-11] MEDS ORDERED: EFFEXOR-XR150 MG PO (08:51)
[2021-10-11] MEDS ORDERED: EFFEXOR 3737.5 MG/TA PO (08:51)
[2021-10-11] MEDS ORDERED: BUSPAR10 MG PO (08:52)
[2021-10-11 09:01] VITALS: BP 113/75; PULSE 78; TEMP 98
--- NOTE | 2021-10-11 09:15 | NUR ---
Blood sugar obtained: 92. IV started in R hand on first attempt. IVF is slowly infusing and is positional. MICHAEL Song notified. IVF scanned.
--- NOTE | 2021-10-11 09:30 | NUR ---
Daughter was provided a warm blueberry muffin and Sprite to drink. Iglesia chung is in her lap.
[2021-10-11 10:00] VITALS: BP 115/74; PULSE 70; TEMP 97.8
--- NOTE | 2021-10-11 10:00 | NUR ---
Patient arrived on cart from Endo suite. Patient is alert but drowsy. She ambulated from the cart to the chair without difficulty, using a steady gait. Vitals obtained. Verbal report obtained. Patient requested ice water and a warm muffin to eat. Daughter is present. Call chung is at bedside. Warm blanket provided.
[2021-10-11 10:15] VITALS: BP 114/80; PULSE 68
--- NOTE | 2021-10-11 10:15 | NUR ---
Patient is tolerating her ice water and muffin well. Denies neusea. No vomiting. Vitals obtained. The DR was then in to see the patient. Call chung is within reach.
[2021-10-11 10:30] VITALS: BP 119/83; PULSE 70
--- NOTE | 2021-10-11 10:30 | NUR ---
Vitals obtained. IV was discontinued at this time due to impending dishcarge. Catheter tip intact. Pressure dressing applied. No swelling or redness noted. Discharge instructions were reviewed, along with patient education. The patient verbalized understanding of material and signed the related paperwork. The patient denied needing assistance changing into her personal clothes and stated she will use the call chung when her ride arrives at the patient entrence. Call chung is within reach on the bedside table.
--- NOTE | 2021-10-11 10:50 | NUR ---
The patient was escorted out to the patient entrence by MICHAEL Montelongo via wheelchair. The patient has her personal belonings and her daughter has the discharge packet in hand. The patient was transferred into the care of her , who is present to drive. The patient got into the front seat and put on her seatbelt.
== END 2021-10-11 10:50 | disposition home or self-care (01) ==
LOC: SDCO 08:25
DX: K29.70 Gastritis, unspecified, without bleeding (principal); K21.9 Gastro-esophageal reflux disease without esophagitis; F32.A Depression, unspecified; E11.9 Type 2 diabetes mellitus without complications; E07.9 Disorder of thyroid, unspecified; D64.9 Anemia, unspecified; F41.9 Anxiety disorder, unspecified; E03.9 Hypothyroidism, unspecified; K76.0 Fatty (change of) liver, not elsewhere classified; F17.290 Nicotine dependence, other tobacco product, uncomplicated; Z83.79 Family history of other diseases of the digestive system; Z98.84 Bariatric surgery status; Z79.890 Hormone replacement therapy; Z79.899 Other long term (current) drug therapy
CPT/HCPCS: J2704; J7030

== ENCOUNTER → 2021-10-18 | Outpatient (CLI) | payer MEDICAID ==
[~2021-10-18] MED LIST changes: +BUSPAR10 MG PO; +EFFEXOR 3737.5 MG/TA PO; +LEVOXYL0.112 MG PO
== END ==
LOC: COL.RAD 06:48
DX: K76.0 Fatty (change of) liver, not elsewhere classified (principal); K76.89 Other specified diseases of liver

== ENCOUNTER → 2021-10-19 | Outpatient (CLI) | payer MEDICAID | LOC: COL.RAD 06:35 | DX: K76.0 Fatty (change of) liver, not elsewhere classified (principal) | CPT/HCPCS: A9537; J2805 ==

== ENCOUNTER 2021-11-07 10:28 | Day surgery (SDC) | payer MEDICAID ==
[2021-11-07] VITALS (8 sets, daily range): BP systolic 106–149; BP diastolic 62–85; PULSE 70–82; TEMP 97.6–98.4
[~2021-11-07] VITALS: Ht 167.6 cm; Wt 84.5 kg
[2021-11-07] MEDS ORDERED: PHENTERMINE15 MG PO (12:23)
[2021-11-07] MEDS ORDERED: VITAMIND3 5000 PO (12:23)
[2021-11-07] MEDS ORDERED: TYLENOL 325MG325 MG PO (12:24)
[2021-11-07] MEDS ORDERED: NORCO 325 MG-51 TAB PO (13:42)
--- NOTE | 2021-11-07 14:55 | NUR ---
Pt returned via cart to bay [facility]. Pt on 2L via NC, VSS-see flowsheet. IVF infusing to patent IV. Folded blanket for splinting placed on abdomen. X4 bandaids intact and clean to abdomen. Side rails up. Pt has water at bedside to drink as tolerates. Call light in reach.
--- NOTE | 2021-11-07 17:00 | NUR ---
Pts VS remain stable. Tolerated toast, coffee and water. Able to ambulate to bathroom and void without difficulty. IV removed, pressure dressing applied. Pt dressing independently.
--- NOTE | 2021-11-07 17:25 | NUR ---
PT TRANSFERED VIA WHEELCHAIR TO PERSONAL VEHICLE TO BE DRIVEN HOME BY FAMILY MEMBER.
== END 2021-11-07 17:25 | disposition home or self-care (01) ==
LOC: SDCO 10:28
DX: K81.1 Chronic cholecystitis (principal); K82.8 Other specified diseases of gallbladder; F17.290 Nicotine dependence, other tobacco product, uncomplicated; Z98.84 Bariatric surgery status; Z86.16 Personal history of COVID-19
CPT/HCPCS: J0690; J1170; J1885; J2405; J2704; J3010; J7120

== ENCOUNTER 2022-11-28 13:15 | Emergency (ER) | payer MEDICAID ==
[~2022-11-28] VITALS: Ht 167.6 cm; Wt 81.8 kg
[~2022-11-28 13:15] MED LIST changes: +PHENTERMINE15 MG PO; +TYLENOL 325MG325 MG PO; +VITAMIND3 5000 PO
[2022-11-28 13:25] VITALS: BP 132/76; PULSE 88; TEMP 97.8
[2022-11-28] MEDS ORDERED: NORCO 325 MG-51 TAB PO (14:14)
== END 2022-11-28 14:28 | disposition home or self-care (01) ==
LOC: COL.ER 13:15
DX: S49.91XA Unspecified injury of right shoulder and upper arm, initial encounter (principal); Z88.2 Allergy status to sulfonamides; X50.0XXA Overexertion from strenuous movement or load, initial encounter